=== PATIENT | male | born 1945 | race African-American/Black ===

== ENCOUNTER 2017-03-23 09:31 | Inpatient (IN) | payer OTHER, BC ==
[2017-03-20 16:44] VITALS: BMI 28.7
--- NOTE | 2017-03-23 11:23 | HP ---
History & Physical Update - History History: No Change - Physical Physical: No Change - Assessment Assessment: No Change - Plan Plan: No Change
--- NOTE | 2017-03-23 11:25 | OP ---
Operative Note - Note: Operative Date: 03/23/17 Pre-Operative Diagnosis: BPH w LUTS, bladder calculus Operation: cystoscopy, laser lithotripsy of bladder calculus, bipolar TURP Findings: bladder calculus, BPH Post-Operative Diagnosis: Same as Pre-op Surgeon: Luciano Hummel Anesthesiologist/[employer]: Anastasia Ramirez Anesthesia: General Specimens Removed: bladder calculi, prostate tissue Estimated Blood Loss (mls): 200 Drains & Tubes with Location: [address] 30 ml chambers Operative Report Dictated: Yes
[2017-03-23] MEDS ORDERED: OXYCODONE/APAP 5/325MG COMBO TABLET PO PRN (12:37)
[2017-03-23] MEDS ORDERED: MIDAZOLAM HCL 2 MG/2 ML SINGLE DOSE VIAL ONE (12:53)
[2017-03-23] MEDS ORDERED: PROPOFOL 20 ML ONE (12:53)
[2017-03-23] MEDS ORDERED: ceFAZolin SODIUM 1 GM VIAL ONE (12:53)
[2017-03-23] MEDS ORDERED: ceFAZolin SODIUM 1 GM VIAL IVPB ONE (13:05)
[2017-03-23] MEDS ORDERED: oxyCODONE HCL 5 MG TABLET PO PRN (14:03)
[2017-03-23] MEDS ORDERED: ACETAMINOPHEN 325 MG TABLET (FP) PO PRN (14:03)
[2017-03-23] MEDS: CEFAZOLIN (PRE-DOCKED) 50 ML IVPB SCH (17:18)
[2017-03-23] MEDS: metFORMIN HCL 500 MG TABLET (FP) PO SCH (17:18)
[2017-03-23] MEDS ORDERED: ATORVASTATIN CA 20 MG TABLET (FP) PO SCH (22:00)
[2017-03-23] MEDS ORDERED: levETIRAcetam 250 MG TABLET (FP) PO ONE (22:04)
[2017-03-23] MEDS: CARVEDILOL 25 MG TABLET (FP) PO SCH (22:06)
[2017-03-23] MEDS: levETIRAcetam 500 MG TABLET (FP) PO SCH ×2 (22:09)
[2017-03-24] MEDS: CEFAZOLIN (PRE-DOCKED) 50 ML IVPB SCH ×3 (01:45→09:18)
[2017-03-24] MEDS: metFORMIN HCL 500 MG TABLET (FP) PO SCH (06:08)
[2017-03-24 07:35] LABS: MCH 28.3 pg (25.7-33.7); MCHC 33.4 g/dl (32.0-35.9); MEAN CELL VOLUME 84.7 fl (80-96); MEAN PLT VOLUME 6.6 fl (7.5-11.1); PLATELET COUNT 200 K/MM3 (134-434); RDW 13.5 % (11.9-15.9); WHITE BLOOD COUNT 11.2 K/mm3 (4.0-10.0)
[2017-03-24 08:07] LABS: ANION GAP 6 (8-16); CALCIUM 8.3 mg/dL (8.5-10.1); CO2 28 mmol/L (21-32); CREATININE 0.9 mg/dL (0.7-1.3); GLUCOSE,RANDOM 169 mg/dL (74-106)
[2017-03-24] MEDS: CARVEDILOL 25 MG TABLET (FP) PO SCH (08:59)
[2017-03-24] MEDS: levETIRAcetam 500 MG TABLET (FP) PO SCH ×2 (08:59→09:00)
[2017-03-24 09:20] VITALS: BP 115/57; PULSE 69; TEMP 99.2
[2017-03-24] MEDS ORDERED: LISINOPRIL 10 MG TABLET (FP) PO SCH (10:00)
[2017-03-24] MEDS ORDERED: amLODIPine BESYLATE 10 MG TABLET (FP) PO SCH (10:00)
--- NOTE | 2017-03-26 10:14 | OP ---
DATE OF OPERATION: 03/23/2017 PREOPERATIVE DIAGNOSES: Benign prostatic hypertrophy and bladder calculus. POSTOPERATIVE DIAGNOSES: Benign prostatic hypertrophy and bladder calculus. PROCEDURE: Cystoscopy, laser lithotripsy, bladder calculus, and bipolar transurethral resection of the prostate. SURGEON: Luciano Villarreal MD CASE AIDE: None. ANESTHESIA: General via laryngeal mask. ANESTHESIOLOGIST: Anastasia Ramirez MD SPECIMENS: Bladder stones and prostate tissue. CULTURES: None. DRAINS: A 24-Mosotho 3-way Guidry catheter, 30-mL balloon. ESTIMATED BLOOD LOSS: 200 mL COMPLICATIONS: None. DESCRIPTION OF PROCEDURE: Patient was brought in the operating room, placed on the operating table in a supine position. After administration of general anesthesia via laryngeal mask, intravenous antibiotics were administered and the patient was placed in the dorsal lithotomy position and the genitals and perineum were prepped and draped in the usual sterile manner. The continuous-flow cystoscope was inserted into the bladder under direct vision. Anterior urethra was normal. The prostatic urethra measured approximately 6 cm in length and demonstrated severe trilobar occlusion. The bladder was entered and thoroughly inspected. There were no foreign bodies or tumors. There was a large bladder stone. Both ureteral orifices were close to the median lobe with clear efflux bilaterally. Now, the 1000-micron laser fiber was inserted, and the bladder stone was fragmented into minute pieces with doing laser lithotripsy. Fragments were removed with the Ellik evacuator. Now, this continuous-flow cystoscope was removed and the bipolar resectoscope was inserted and the TURP was now started in the standard fashion by resecting the median lobe first. Then, the groove was created in the 2 o'clock position in the left lateral lobe from the area of the bladder neck to the verumontanum down to the level of the capsular fibers. The left lateral lobe of the prostate was then sequentially resected from the 2 o'clock to the 6 o'clock position from the area of the bladder neck to the verumontanum down to the level of the capsular fibers. In a similar manner, the right lateral lobe of the prostate was resected. The floor of the prostate was resected, and the roof of the prostate was resected. All obstructive prostatic tissue from the bladder neck to the verumontanum was resected. All resected prostate tissue was removed from the bladder using Ellik evacuator. Hemostasis was assured. The bladder was left full, and the instrument removed and a number 24-Mosotho 3-way Guidry catheter were inserted in the bladder, 30 mL placed in the balloon, placed on continuous bladder irrigation, returned pink color. He tolerated the procedure well, transferred to recovery in stable condition. LUCIANO VILLARREAL M.D. ASHA/[id number]
--- NOTE | 2017-03-27 14:57 | PATH ---
Surgical Pathology Report Patient Name: DANIELLE RUGGIERO [facility]. Rec. #: [id number] /Age/Gender: 1945 (Age: 71) / M Account: [id number] Location: [address] [place] [address]/[facility] Taken: 03/23/2017 Received: 03/26/2017 Reported: 03/27/2017 Physicians: Luciano Hummel M.D. Specimen(s) Received A: CALCULI BLADDER B: PROSTATE CHIPS Clinical History BPH, bladder stone Final Diagnosis A. BLADDER STONE, EXTRACTION: CALCULUS (GROSS EXAM). SPECIMEN SENT FOR CHEMICAL ANALYSIS. B. PROSTATE, TUR: BENIGN PROSTATE TISSUE WITH GLANDULAR AND STROMAL HYPERPLASIA AND ACUTE AND CHRONIC INFLAMMATION. Electronically Signed Dariusz Estes M.D. Gross Description A. Received in formalin labeled "bladder stone" is a 0.7 x 0.7 x 0.3 cm aggregate of weiss, irregular to fragmented calculi. The formalin is drained and the specimen is dried and sent for chemical analysis. B. Received in formalin labeled "prostate tissue" is an 18 g, 9.5 x 9.0 x 0.6 cm aggregate of weiss, irregular, firm to rubbery portions of tissue, consistent with prostate chips. Prop Cutter sections are submitted in 10 cassettes. /03/26/201703/26/2017
== END 2017-03-24 10:29 | disposition home or self-care (01) | DRG 714 ==
LOC: JASUSAT 09:31 → JSAMEDAYSX 11:26 → J6S 16:55
PROVIDERS: ADMIT Urology; ATTEND Urology
PROC: 0VT08ZZ Resection of Prostate, Via Natural or Artificial Opening Endoscopic (ICD-10-PCS; principal; 2017-03-23 11:00)
PROC: 0TCB8ZZ Extirpation of Matter from Bladder, Via Natural or Artificial Opening Endoscopic (ICD-10-PCS; 2017-03-23 11:00)
DX: N40.0 Benign prostatic hyperplasia without lower urinary tract symptoms (principal); N21.0 Calculus in bladder
CPT/HCPCS: 36415; 80048; 82360; 85027; 86850; 86900; 86901; 88300-TC; 88305-TC; 94760